=== PATIENT | female | born 1960 | race Caucasian/White ===

== ENCOUNTER 2018-01-16 13:22 | Emergency (ER) | payer MEDICARE, OTHER | END 2018-01-16 17:24 | disposition home or self-care (01) | LOC: E/R 13:22 | DX: J32.0 Chronic maxillary sinusitis (principal); I10 Essential (primary) hypertension; F17.210 Nicotine dependence, cigarettes, uncomplicated; Z96.651 Presence of right artificial knee joint | CPT/HCPCS: 71045; 93005; 99284-25 ==